=== PATIENT | female | born 1960 | race Caucasian/White ===

== ENCOUNTER 2017-12-24 07:56 | Emergency (ER) | payer BC ==
--- NOTE | 2017-12-24 08:11 | Emergency Department Record ---
History of Present Illness - General Chief complaint: Dental Stated complaint: DENTAL PAIN Time Seen by Provider: 12/24/17 08:03 Source: Patient Mode of Arrival: Ambulatory Limitations: No limitations - History of Present Illness Initial comments: The patient is here due to dental pain for almost a week. She possibly broke off a piece of a tooth a week ago and now it is becoming painful. She denies any swelling or fever. MD complaint: Tooth pain Onset/Timin -: Days(s) Severity: Moderate Quality: Aching Consistency: Constant - Related Data Home Medications Medication Instructions Recorded Confirmed Last Taken Ergocalciferol (Vitamin D2) 50,000 unit PO WEEKLY 12/24/17 12/24/17 1 Day Ago [Vitamin D2] ~12/23/17 Levothyroxine Sodium [Synthroid] 50 mcg PO DAILY 12/24/17 12/24/17 1 Day Ago ~12/23/17 Rosuvastatin Calcium [Crestor] 20 mg PO DAILY 12/24/17 12/24/17 1 Day Ago ~12/23/17 Previous Rx's Medication Instructions Recorded Clindamycin HCl [Cleocin HCl] 300 mg PO QID #28 capsule 12/24/17 Clindamycin HCl [Cleocin HCl] 300 mg PO QID #28 capsule 12/24/17 Naproxen [Naprosyn] 500 mg PO BID #14 tablet. 12/24/17 Naproxen [Naprosyn] 500 mg PO BID #14 tablet. 12/24/17 Allergies Allergy/AdvReac Type Severity Reaction Status Date / Time morphine [MORPHINE] Allergy Unknown HYPERSENSIT Verified 12/24/17 08:05 IVITY egg Allergy SWELLING Verified 12/24/17 08:05 (GENERAL) Travel Screening - Travel/Exposure Within Last 30 Days Have you traveled within the last 30 days?: No - Travel/Exposure Within Last Year Have you traveled outside the [place] in the last year?: No - Additonal Travel Details Have you been exposed to anyone with a communicable illness?: No - Travel Symptoms Symptom Screening: None Review of Systems Constitutional: Denies: Chills, Fever Past Medical History - SOCIAL HISTORY Smoking Status: Former smoker Alcohol Use: None Drug Use: None - RESPIRATORY Hx Respiratory Disorders: Yes Hx COPD: Yes - CARDIOVASCULAR Hx Cardiac Cath: Yes Hx Irregular Heartbeat: Yes - NEURO Hx Dizziness: Yes Comment:: [place] - GI Hx GI Disorders: No - Hx Genitourinary Disorders: Yes Hx UTI: Yes Comment:: frequent kidney infection - ENDOCRINE Hx Endocrine Disorders: No - MUSCULOSKELETAL Hx Musculoskeletal Disorders: Yes Hx Arthritis: Yes - PSYCH Hx Anxiety: Yes - HEMATOLOGY/ONCOLOGY Hx Hematology/Oncology Disorders: No Family Medical History Any Significant Family History?: Yes Hx Heart Disease: Father Hx Stroke: Grandparents Physical Exam - General General Appearance: Alert, Cooperative, No acute distress - Head Head exam: Atraumatic, Normocephalic, Normal inspection - Eye Eye exam: Normal appearance, PERRL - ENT Teeth exam: Dental caries, Dental tenderness # (5. There is no gum line swelling or any signs of an abscess. There is tenderness with palpation of the tooth.). negative: Normal inspection Throat exam: Normal inspection. negative: Tonsillar erythema, Tonsillar exudate - Neck Neck exam: Normal inspection, Full ROM. negative: Tenderness - Respiratory Respiratory exam: Normal lung sounds bilaterally. negative: Respiratory distress - Cardiovascular Cardiovascular Exam: Regular rate, Normal rhythm, Normal heart sounds Course Vital Signs 12/24/17 07:58 Temperature 98.4 F Pulse Rate 90 Respiratory 20 Rate Blood Pressure 125/77 Pulse Ox 94 L - Reevaluation(s) Reevaluation #1: I did explain to the patient that I do not see any abscess but will treat the patient or an infection. 12/24/17 08:23 Disposition Disposition: Discharge Clinical Impression: Pain, dental Disposition: Home, Self-Care Condition: (2) Stable Instructions: Toothache (ED) Additional Instructions: Please take the Clindamycin and Naprosyn as directed. Please see your Dentist ALIVIA. Return to the ER for any worsening pain or any swelling or fever. Prescriptions: Clindamycin HCl [Cleocin HCl] 300 mg PO QID #28 capsule Clindamycin HCl [Cleocin HCl] 300 mg PO QID #28 capsule Naproxen [Naprosyn] 500 mg PO BID #14 tablet.dr Sherwoodroxen [Naprosyn] 500 mg PO BID #14 tablet. Forms: Patient Portal Access Time of Disposition: 08:11 Quality - Quality Measures Quality Measures: N/A - Blood Pressure Screening View Details: Yes Does Patient Have Any of the Following: No Blood Pressure Classification: Pre-Hypertensive BP Reading Systolic Measurement: 125 Diastolic Measurement: 77 Screening for High Blood Pressure: < Pre-Hypertensive BP, F/U Documented > [ [id number]] Pre-Hypertensive Follow-up Interventions: Referral to alternative/primary care provider.
== END 2017-12-24 08:19 | disposition home or self-care (01) ==
LOC: ER 07:56
DX: K08.89 Other specified disorders of teeth and supporting structures (principal)
CPT/HCPCS: 99282